=== PATIENT | female | born 1955 | race Caucasian/White ===

== ENCOUNTER 2017-04-14 07:54 | Outpatient (CLI) | payer OTHER ==
--- NOTE | 2017-04-14 10:22 | DIAGNOSTIC IMAGING REPORT ---
PROCEDURE: US COMPLETE PELVIC W/TRANSVAG INDICATION: PELVIC PAIN TECHNIQUE: Transabdominal and endovaginal pennington scale and color Doppler sonographic images of the female pelvis were obtained. COMPARISON: Pelvic ultrasound 05/13/2016 and 07/05/2013 FINDINGS: TRANSABDOMINAL SCANS: Enlarged, anteverted uterus measures approximately 9 x 8 x 8.8 cm the fundus is globular secondary to a heterogeneous dominant mass. There is no significant hypervascularity to this mass. The right ovary was not well seen. The left has a normal echotexture. 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 The visible portion of the urinary bladder is normal. No significant free pelvic fluid. TRANSVAGINAL SCANS: The uterus is anteverted in position and has a heterogeneous echotexture. A dominant fundal fibroid measures 8.1 x 7.6 x 8.2 cm. The endometrium is obscured. The right ovary was not seen. The left ovary measures 2.5 x 0.9 x 1.7 cm and has a normal follicular echotexture and normal vascularity. There is a dominant 1.1 cm left ovarian follicle. No suspicious adnexal masses or free pelvic fluid. IMPRESSION: 1. Enlarged uterus secondary to a dominant 8.2 cm fibroid, slightly smaller since the previous study. 2. Endometrium and right ovary were not seen. The left ovary appears normal.
== END 2017-04-14 23:00 ==
LOC: US SRH 07:54
DX: N95.0 Postmenopausal bleeding (principal); D25.9 Leiomyoma of uterus, unspecified